=== PATIENT | male | born 1960 | race Caucasian/White ===

== ENCOUNTER 2017-12-27 03:57 | Emergency (ER) | payer BC ==
[~2017-12-27] VITALS: Ht 172.7 cm; Wt 77.8 kg
[~2017-12-27 03:57] MED LIST: ASPIRIN81 M2 PO; CIPRO500 MG PO; FLOMAX0.4 MG PO; OXYCODONE-APAP1 EAC3 PO; PERCOCET 5/31 TABLET PO; ZOFRAN ODT4 MG PO; ZOFRAN4 MG PO
[2017-12-27 04:50] LABS: APPEARANCE CLEAR ((CLEAR)); BILIRUBIN NEGATIVE; BLOOD MODERATE; COLOR YELLOW ((YELLOW)); GLUCOSE (STRIP) NEGATIVE; KETONES NEGATIVE; LEUKOCYTES NEGATIVE; NITRITE NEGATIVE; PROTEIN (STRIP) NEGATIVE; SPECIFIC GRAVITY 1.023 (1.000-1.030); UROBILINOGEN 0.2 MG/DL (0.2-1.0)
[2017-12-27 04:54] LABS: BACTERIA NONE SEEN /HPF; EPITHELIAL CELLS RARE /HPF; MUCUS 4+ /LPF; RED BLOOD CELLS 15-20 /HPF (0-5); UCUL ADDED? NO; WHITE BLOOD CELLS 0-5 /HPF (0-5)
[2017-12-27 05:08] LABS: CHLORIDE 106 mEq/L (99-109); POTASSIUM 3.8 mEq/L (3.7-5.4); SODIUM 139 mEq/L (136-147)
[2017-12-27 05:09] LABS: GLUCOSE 127 mg/dL (70-99)
[2017-12-27 05:10] LABS: HEMATOCRIT 42.8 % (38.0-50.0); HEMOGLOBIN 14.8 G/DL (12.5-16.6); MCHC 34.6 G/DL (30.0-36.0); MCV 86.6 FL (86-99); PLATELET COUNT 338 K/uL (156-360); RBC DIS.WIDTH-CV 12.6 % (11.8-14.6); RBC DIS.WIDTH-SD 39.8 % (39-53); RED BLOOD COUNT 4.94 M/uL (4.00-5.50); WHITE BLOOD COUNT 6.4 K/uL (4.1-10.2)
[2017-12-27 05:13] LABS: GFR ESTIMATE (CALCULATED) > 59 mL/min/ (58.99-99999)
[2017-12-27 05:14] LABS: UREA NITROGEN (BUN) 19 mg/dL (9-23)
[2017-12-27] MEDS ORDERED: ZOFRAN4 MG PO (06:41)
[2017-12-27] MEDS ORDERED: PERCOCET 5/31 TABLET PO (06:41)
[2017-12-27] MEDS ORDERED: FLOMAX0.4 MG PO (06:41)
[2017-12-27 07:01] VITALS: BP 139/87
== END 2017-12-27 07:05 | disposition home or self-care (01) ==
LOC: EME 03:57
DX: N13.2 Hydronephrosis with renal and ureteral calculous obstruction (principal); Z87.442 Personal history of urinary calculi; Z79.82 Long term (current) use of aspirin; Z87.891 Personal history of nicotine dependence
CPT/HCPCS: 74176; 80048; 81003; 85027; 99281; 99284; J1885; J2405; J7030